=== PATIENT | male | born 1965 | race Hispanic/Latino ===

== ENCOUNTER 2017-11-20 11:50 | Emergency (ER) | payer OTHER, SELFPAY ==
[2017-11-20 12:35] LABS: Absolute Lymphocytes (CBC) 1.5 K/uL (0.7-4.9); Absolute Monocytes 0.5 K/uL (0.1-1.3); Absolute Neutrophil 3.5 K/uL (1.8-8.0); Basophils % 0.8 % (0-1.3); Eosinophils % 0.6 % (0-4.4); Hematocrit 40.6 % (39.6-49.0); Lymphocytes % 26.9 % (15.3-44.8); MCH 30.6 pg (27.0-35.0); MCV 90.4 fL (80-100); MPV 10.6 fL (7.6-11.3); Monocytes % 9.1 % (3.3-12.3)
[2017-11-20 13:02] LABS: BUN Blood Urea Nitrogen 18 mg/dL (6-20); Bicarbonate 24 mEq/L (21-31); Glucose Level 115 mg/dL (65-120); Potassium 3.7 mEq/L (3.6-5.0); Sodium Level 138 mEq/L (135-145)
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
--- NOTE | 2017-11-20 15:10 | EKG ---
Test Date: 2017-11-20 Test Time: 12:11:44 Tax Compliance Agent: PAMELA MEASUREMENT RESULTS: Intervals: Rate: 66 TX: 154 QRSD: 92 QT: 402 QTc: 421 Yarnell: P: 51 TX: 154 QRS: -6 T: 19 INTERPRETIVE STATEMENTS: Normal sinus rhythm Moderate voltage criteria for LVH, may be normal variant Borderline ECG No previous ECG available for comparison Electronically Signed On 11-20-17 15:09:54 CDT by Oneal Coppola
== END 2017-11-20 15:07 | disposition home or self-care (01) ==
LOC: ER 11:50
DX: R07.1 Chest pain on breathing (principal); V47.6XXA Car passenger injured in collision with fixed or stationary object in traffic accident, initial encounter
CPT/HCPCS: 36415; 70450; 71045; 71260; 72125; 74177; 80048; 85025; 93005; 99285